=== PATIENT | male | born 1965 | race Caucasian/White ===

== ENCOUNTER 2018-06-17 07:45 | Day surgery (SDC) | payer BC ==
[2018-06-15 09:36] VITALS: BMI 24.4
[~2018-06-17 07:45] MED LIST: LACTATED RINGERS 1,000 ML IV SCH
[2018-06-17 08:10] VITALS: TEMP 97.7
[2018-06-17] MEDS ORDERED: LIDOCAINE 1% 20 ML VIAL (10MG/ML) FOR IV START INTRADERMA ONE (08:15)
[2018-06-17] MEDS ORDERED: PROPOFOL 10 MG/ML 20 ML VIAL IV ONE (09:12)
[2018-06-17] MEDS ORDERED: LIDOCAINE 1% INJ 10MG/ML (20 ML MDV) ONE (09:12)
--- NOTE | 2018-06-17 09:26 | P.GSHP ---
History of Present Illness H&P Date: 06/17/18 Chief Complaint: Screening colonoscopy This is a 52-year-old male who presents today for screening colonoscopy. Patient denies a significant GI complaints. Past Medical History Past Medical History: Hypertension History of Any Multi-Drug Resistant Organisms: None Reported Past Surgical History: No Surgical Hx Reported Additional Past Anesthesia/Blood Transfusion Reaction / Comment(s): never had anesthesia, no family problems with Smoking Status: Never smoker - Past Family History Mother Family Medical History: No Reported History Medications and Allergies Home Medications Medication Instructions Recorded Confirmed Type Losartan Potassium 100 mg PO DAILY 06/17/18 06/17/18 History Allergies Allergy/AdvReac Type Severity Reaction Status Date / Time No Known Allergies Allergy Verified 06/17/18 08:02 Surgical - Exam Vital Signs Temp Pulse Resp BP Pulse Ox 97.7 F 69 18 148/85 99 06/17/18 08:08 06/17/18 08:08 06/17/18 08:08 06/17/18 08:08 06/17/18 08:08 - General well developed, well nourished, no distress - Eyes PERRL - ENT normal pinna - Neck no masses - Respiratory normal expansion - Cardiovascular Rhythm: regular - Abdomen Abdomen: soft, non tender Assessment and Plan Assessment: We'll perform screening colonoscopy.
[2018-06-17 09:54] VITALS: RESP 16
--- NOTE | 2018-06-17 09:58 | P.OP ---
Date of Procedure: 06/17/18 Preoperative Diagnosis: Screening colonoscopy Postoperative Diagnosis: Normal colon Procedure(s) Performed: Colonoscopy Anesthesia: MAC Surgeon: Jony Ramon Pathology: none sent Condition: stable Disposition: PACU Description of Procedure: PROCEDURE: The patient was placed on the endoscopy table in the lateral position. Digital rectal examination was performed which revealed no abnormalities. The prostate was symmetrical without nodules. Flexible colonoscope was then placed in the patient's anus and passed throughout the entire colon. The ileocecal valve was visualized. The cecum, ascending, transverse, descending and sigmoid colon were normal. The rectum was normal as well. There were no masses, polyps or diverticula noted in the entire colon. SUMMARY OF FINDINGS: Normal colonoscopy.
[2018-06-17 09:59] VITALS: BP 131/82; PULSE 62
== END 2018-06-17 10:13 | disposition home or self-care (01) ==
LOC: ORWHC2ENDO 07:45
PROVIDERS: ATTEND Surgery
DX: Z12.11 Encounter for screening for malignant neoplasm of colon (principal); I10 Essential (primary) hypertension; Z79.899 Other long term (current) drug therapy
CPT/HCPCS: J2001; J2704; G0121

== ENCOUNTER 2018-10-20 21:18 | Emergency (ER) | payer BC ==
[2018-10-20 21:32] VITALS: RESP 18
[2018-10-20] MEDS ORDERED: MORPHINE SULFATE 4 MG/ML SYRINGE IVP STA (21:47)
[2018-10-20] MEDS ORDERED: ONDANSETRON 4 MG/2 ML VIAL IVP STA (21:47)
[2018-10-20] MEDS ORDERED: KETOROLAC 30 MG/ML 1 ML VIAL IVP STA (21:56)
[2018-10-20 22:06] LABS: Basophils % (A) 0 %; Eosinophils % (A) 0 %; HCT 42.3 % (39.0-53.0); HGB 14.1 gm/dL (13.0-17.5); Lymphocytes # (A) 0.9 k/uL (1.0-4.8); Lymphocytes % (A) 8 %; MCH 29.1 pg (25.0-35.0); MCHC 33.3 g/dL (31.0-37.0); MCV 87.3 fL (80.0-100.0); Mean Platelet Volume 6.9; Monocytes # (A) 0.3 k/uL (0-1.0); Monocytes % (A) 3 %; Neutrophils # (A) 9.9 k/uL (1.3-7.7); Neutrophils % (A) 88 %; Platelet Count 262 k/uL (150-450); RBC 4.84 m/uL (4.30-5.90); RDW 12.2 % (11.5-15.5); WBC 11.2 k/uL (3.8-10.6)
[2018-10-20 22:16] LABS: Albumin 4.8 g/dL (3.5-5.0); Calcium 9.9 mg/dL (8.4-10.2); Potassium 4.2 mmol/L (3.5-5.1); Total Bilirubin 0.7 mg/dL (0.2-1.3); Total Protein 8.4 g/dL (6.3-8.2)
--- NOTE | 2018-10-20 22:50 | CT ---
EXAM: CT Abdomen and Pelvis With Intravenous Contrast CLINICAL HISTORY: ITS.REASON CT Reason: Pain TECHNIQUE: Axial computed tomography images of the abdomen and pelvis with intravenous contrast. CTDI is 7.8 mGy and DLP is 771.9 mGy-cm. This CT exam was performed using one or more of the following dose reduction techniques: automated exposure control, adjustment of the mA and/or kV according to patient size, and/or use of iterative reconstruction technique. COMPARISON: No relevant prior studies available. FINDINGS: The lung bases are clear aside from minimal atelectasis. Liver, biliary tree, pancreas, spleen, and adrenal glands are within normal limits. There is a 4 mm distal left ureteral calculus causing mild hydroureteronephrosis. Bilateral intrarenal stones. Prostatomegaly without pathologic bladder distention. No abdominal aortic aneurysm. No fracture. IMPRESSION: 4 mm distal left ureteral calculus causing mild hydroureteronephrosis. Bilateral intrarenal stones.
--- NOTE | 2018-10-20 23:10 | ED ---
Back Pain HPI - General Chief Complaint: Back Pain/Injury Stated Complaint: Back pain, vomiting Time Seen by Provider: 10/20/18 21:47 Source: patient, family - History of Present Illness Initial Comments: 52-year-old male with past medical history of hypertension presenting today for chief complaint of left flank pain radiating to his left-sided abdomen. And vomiting. Patient states for the past day he has had on and off left flank pain he states has been more persistent this evening and began constant sharp pain. He states he is unable to tolerate the pain began vomiting. Patient denies hematuria dysuria or urgency frequency. Patient states he is unsure if his history of kidney stones but has had a history of pain similar to this years ago, that occurred in two episodes then went away. Patient denies abdominal pain denies chest pain denies shortness of breath. Denies any leg pain. Rem aining review of system negative. Upon arrival patient appears uncomfortable. Grabbing left-sided back. - Related Data Home Medications Medication Instructions Recorded Confirmed Losartan Potassium 100 mg PO DAILY 06/17/18 06/17/18 Previous Rx's Medication Instructions Recorded Ketorolac [Toradol] 10 mg PO Q8HR PRN 5 Days #15 tab 10/20/18 Ondansetron Odt [Zofran Odt] 4 mg PO Q8HR PRN 7 Days #21 tab 10/20/18 Tamsulosin [Flomax] 0.4 mg PO DAILY #7 cap 10/21/18 Allergies Allergy/AdvReac Type Severity Reaction Status Date / Time No Known Allergies Allergy Verified 10/21/18 05:27 Review of Systems ROS Statement: Those systems with pertinent positive or pertinent negative responses have been documented in the HPI. ROS Other: All systems not noted in ROS Statement are negative. Past Medical History Past Medical History: Hypertension History of Any Multi-Drug Resistant Organisms: None Reported Past Surgical History: No Surgical Hx Reported Additional Past Anesthesia/Blood Transfusion Reaction / Comment(s): never had anesthesia, no family problems with Past Psychological History: No Psychological Hx Reported Smoking Status: Never smoker Past Alcohol Use History: Occasional Past Drug Use History: None Reported - Past Family History Mother Family Medical History: No Reported History General Exam - General Exam Comments Initial Comments: General: The patient is awake and alert, in no distress, and does not appear acutely ill. Eye: Pupils are equal, round and reactive to light, extra-ocular movements are intact. No nystagmus. There is normal conjunctiva bilaterally. No signs of icterus. Ears, nose, mouth and throat: There are moist mucous membranes and no oral lesions. Neck: The neck is supple, there is no tenderness or JVD. Cardiovascular: There is a regular rate and rhythm. No murmur, rub or gallop is appreciated. Respiratory: Lungs are clear to auscultation, respirations are non-labored, breath sounds are equal. No wheezes, stridor, rales, or rhonchi. Gastrointestinal: Soft, non-distended, non-tender abdomen without masses or organomegaly noted. There is no rebound or guarding present. Musculoskeletal: Normal ROM, no tenderness. Strength 5/5. Sensation intact. Radial and DP ppulses equal bilaterally 2+. Neurological: A&O x 3. CN II-XII intact, There are no obvious motor or sensory deficits. Coordination appears grossly intact. Speech is normal. Skin: Skin is warm and dry and no rashes or lesions are noted. Psychiatric: Cooperative, appropriate mood & affect, normal judgment. Course Vital Signs 10/20/18 10/20/18 10/21/18 21:29 22:50 00:02 Temperature 98.4 F 97.9 F Pulse Rate 48 L 64 58 L Respiratory 18 18 18 Rate Blood Pressure 149/78 125/76 105/76 O2 Sat by Pulse 100 99 96 Oximetry Medical Decision Making - Medical Decision Making 52-year-old male presenting for left flank pain and vomiting. Patient has had previous episodes of this that went away. CT revealed a 4 mm left ureteral stone. This is consistent patient's symptoms. Patient had pain relief with Toradol and Zofran. No vomiting. States he has no pain. Patient is hematuria on urinalysis. Minimal white blood cells less than 5. Patient has no fever. Patient does have a slight increase in creatinine from baseline however no evidence of acute kidney injury. At this time for patient stable for discharge with urology follow-up. Patient is to return for fevers and inability to urinate. Patient was provided outpatient prescription for Toradol and Zofran. Return parameters were discussed and I did discuss the case with him provider Dr. Coffey is agreeable to plan discharge at this time. - Lab Data Result diagrams: 10/20/18 21:55 10/20/18 21:55 Lab Results 10/20/18 10/20/18 10/20/18 Range/Units 21:55 21:55 23:30 WBC 11.2 H (3.8-10.6) k/uL RBC 4.84 (4.30-5.90) m/uL Hgb 14.1 (13.0-17.5) gm/dL Hct 42.3 (39.0-53.0) % MCV 87.3 (80.0-100.0) fL MCH 29.1 (25.0-35.0) pg MCHC 33.3 (31.0-37.0) g/dL RDW 12.2 (11.5-15.5) % Plt Count 262 (150-450) k/uL Neutrophils % 88 % Lymphocytes % 8 % Monocytes % 3 % Eosinophils % 0 % Basophils % 0 % Neutrophils # 9.9 H (1.3-7.7) k/uL Lymphocytes # 0.9 L (1.0-4.8) k/uL Monocytes # 0.3 (0-1.0) k/uL Eosinophils # 0.0 (0-0.7) k/uL Basophils # 0.0 (0-0.2) k/uL Sodium 139 (137-145) mmol/L Potassium 4.2 (3.5-5.1) mmol/L Chloride 103 (98-107) mmol/L Carbon Dioxide 23 (22-30) mmol/L Anion Gap 13 mmol/L BUN 23 H (9-20) mg/dL Creatinine 1.45 H (0.66-1.25) mg/dL Est GFR (CKD-EPI)AfAm 64 (>60 ml/min/1.73 sqM) Est GFR (CKD-EPI)NonAf 55 (>60 ml/min/1.73 sqM) Glucose 155 H (74-99) mg/dL Calcium 9.9 (8.4-10.2) mg/dL Total Bilirubin 0.7 (0.2-1.3) mg/dL AST 28 (17-59) U/L ALT 27 (21-72) U/L Alkaline Phosphatase 70 (38-126) U/L Total Protein 8.4 H (6.3-8.2) g/dL Albumin 4.8 (3.5-5.0) g/dL Amylase 60 (30-110) U/L Lipase 128 (23-300) U/L Urine Color Yellow Urine Appearance Clear (Clear) Urine pH 7.0 (5.0-8.0) Ur Specific [place] >1.050 H (1.001-1.035) Urine Protein 1+ H (Negative) Urine Glucose (UA) Negative (Negative) Urine Ketones 2+ H (Negative) Urine Blood Large H (Negative) Urine Nitrite Negative (Negative) Urine Bilirubin Negative (Negative) Urine Urobilinogen <2.0 (<2.0) mg/dL Ur Leukocyte Esterase Negative (Negative) Urine RBC >182 H (0-5) /hpf Urine WBC 4 (0-5) /hpf Urine Mucus Rare H (None) /hpf Disposition Clinical Impression: Left ureteral stone, Left flank pain, Blood creatinine increased compared with prior measurement Disposition: HOME SELF-CARE Condition: Good Instructions (If sedation given, give patient instructions): Kidney Stones (ED) Additional Instructions: Please use medication as discussed. Please follow-up with urology in next week. Return for fevers, uncontrolled pain. Please return to emergency room if the symptoms increase or worsen or for any other concerns. Prescriptions: Ketorolac [Toradol] 10 mg PO Q8HR PRN 5 Days #15 tab PRN Reason: Severe Pain Ondansetron Odt [Zofran Odt] 4 mg PO Q8HR PRN 7 Days #21 tab PRN Reason: Vomiting Is patient prescribed a controlled substance at d/c from ED?: No Referrals: Ruiz Estevez DO [Primary Care Provider] - 1-2 days Ricky Bragg MD [STAFF PHYSICIAN] - 1-2 days Time of Disposition: 23:56
[2018-10-20 23:44] LABS: Appearance,Urine Clear (Clear); Bilirubin,Urine Negative (Negative); Blood,Urine Large (Negative); Color,Urine Yellow; Glucose,Urine (UA) Negative (Negative); Ketones,Urine 2+ (Negative); Leukocyte Esterase,Urine Negative (Negative); Mucus,Urine Rare /hpf; Nitrite,Urine Negative (Negative); Protein,Urine 1+ (Negative); RBC,Urine >182 /hpf (0-5); Urobilinogen,Urine <2.0 mg/dL (<2.0); WBC,Urine 4 /hpf (0-5)
[2018-10-21 00:03] VITALS: BP 105/76; PULSE 58; TEMP 97.9
[2018-10-21 00:05] LABS: Specific Gravity,Urine >1.050 (1.001-1.035)
== END 2018-10-21 00:03 | disposition home or self-care (01) ==
LOC: EC 21:18
DX: N13.2 Hydronephrosis with renal and ureteral calculous obstruction (principal); R79.89 Other specified abnormal findings of blood chemistry; I10 Essential (primary) hypertension; Z79.899 Other long term (current) drug therapy
CPT/HCPCS: 36415; 80053; 82150; 83690; 85025; 81001; 74177; 99284; 96374; 96375 ×2; J2270; J2405; J1885; Q9967

== ENCOUNTER 2018-10-21 05:11 | Emergency (ER) | payer BC ==
[2018-10-21] MEDS ORDERED: MORPHINE SULFATE 4 MG/ML SYRINGE IVP STA (06:07)
[2018-10-21] MEDS ORDERED: KETOROLAC 30 MG/ML 1 ML VIAL IM STA (06:07)
[2018-10-21] MEDS ORDERED: ACET/COD 300 MG/30 MG STARTER PACK 6 TAB BTL PO STA (06:08)
[2018-10-21] MEDS ORDERED: ONDANSETRON 4 MG ODT STARTER PACK 2 TAB BTL PO STA (06:08)
--- NOTE | 2018-10-21 06:10 | ED ---
Abdominal Pain HPI - General Chief Complaint: Abdominal Pain Stated Complaint: Revisit-kidney stones Source: patient, family Mode of arrival: ambulatory Limitations: no limitations - History of Present Illness Initial Comments: Rick is a pleasant 52-year-old gentleman who was seen and evaluated the emergency department yesterday evening and diagnosed with a kidney stone. Mary ent received Toradol and morphine emergency department his pain was well controlled and he was escorted discharged home. However patient went home without any pain medications, he did have a prescription for narcotic pain medication but the pharmacy was not open. Patient reports that around 2 AM his pain returned and became unbearable which prompted his revisit today. - Related Data Home Medications Medication Instructions Recorded Confirmed Losartan Potassium 100 mg PO DAILY 06/17/18 06/17/18 Previous Rx's Medication Instructions Recorded Ketorolac [Toradol] 10 mg PO Q8HR PRN 5 Days #15 tab 10/20/18 Ondansetron Odt [Zofran Odt] 4 mg PO Q8HR PRN 7 Days #21 tab 10/20/18 Tamsulosin [Flomax] 0.4 mg PO DAILY #7 cap 10/21/18 Allergies Allergy/AdvReac Type Severity Reaction Status Date / Time No Known Allergies Allergy Verified 10/21/18 05:27 Review of Systems ROS Statement: Those systems with pertinent positive or pertinent negative responses have been documented in the HPI. ROS Other: All systems not noted in ROS Statement are negative. Past Medical History Past Medical History: Hypertension Additional Past Medical History / Comment(s): kidney stones History of Any Multi-Drug Resistant Organisms: None Reported Past Surgical History: No Surgical Hx Reported Additional Past Anesthesia/Blood Transfusion Reaction / Comment(s): never had anesthesia, no family problems with Past Psychological History: No Psychological Hx Reported Smoking Status: Never smoker Past Alcohol Use History: Occasional Past Drug Use History: None Reported - Past Family History Mother Family Medical History: No Reported History General Exam - General Exam Comments Initial Comments: Physical Exam GENERAL: Patient is well-developed and well-nourished. Patient appears very uncomfortable HENT: Normocephalic, Atraumatic. EYES: PERRL, EOMI PULMONARY: Unlabored respirations. No audible rales rhonchi or wheezing was noted. CARDIOVASCULAR: There is a regular rate and rhythm without any murmurs gallops or rubs. ABDOMEN: Soft and nontender with normal bowel sounds. Tenderness to percussion left flank SKIN: Skin is clear with no lesions or rashes and otherwise unremarkable. : Deferred NEUROLOGIC: Patient is alert and oriented x3. Moving all extremities spontaneously MUSCULOSKELETAL: Normal extremities with adequate strength and full range of motion. No lower extremity swelling or edema. No calf tenderness. PSYCHIATRIC: Normal psychiatric evaluation. Limitations: no limitations Course Vital Signs 10/21/18 10/21/18 05:22 06:27 Temperature 98.7 F 97.7 F Pulse Rate 41 L 54 L Respiratory 20 18 Rate Blood Pressure 166/81 159/98 O2 Sat by Pulse 98 98 Oximetry Medical Decision Making - Medical Decision Making The patient was seen and evaluated, previous admission was reviewed Labs and imaging were reviewed Patient with a known left-sided kidney stone was discharged earlier in the night with his pain control but has persisted. Morphine and Zofran were ordered for pain management Patient will be discharged home with a starter pack for Tylenol 3 as well as Zofran for pain management until his prescription can be filled, and addition I will prescribe Flomax. Patient was comfortable with this plan of questions pertaining care were answered return parameters discussed patient discharged home in stable condition. Disposition Clinical Impression: Left flank pain, Left ureteral stone Disposition: HOME SELF-CARE Condition: Stable Instructions (If sedation given, give patient instructions): Kidney Stones (ED) Prescriptions: Tamsulosin [Flomax] 0.4 mg PO DAILY #7 cap Is patient prescribed a controlled substance at d/c from ED?: No Referrals: Ruiz Estevez DO [Primary Care Provider] - 1-2 days
[2018-10-21] MEDS ORDERED: ONDANSETRON 4 MG/2 ML VIAL IVP STA (06:18)
[2018-10-21 06:37] VITALS: BP 159/98; PULSE 54; RESP 18; TEMP 97.7
== END 2018-10-21 06:27 | disposition home or self-care (01) ==
LOC: EC 05:11
DX: N20.1 Calculus of ureter (principal); I10 Essential (primary) hypertension; Z79.899 Other long term (current) drug therapy
CPT/HCPCS: 99284; 96374; 96375; 96372; J2270; J2405; J1885; S0119